=== PATIENT | female | born 1990 | race Caucasian/White ===

== ENCOUNTER → 2016-12-01 | Outpatient (REF) | payer OTHER ==
[~2016-12-01] MED LIST: ACET30TAB PO; ACET50TA PO; APAP325T4 PO; MOTR200T44 PO; MULTTAB20 PO; PRENTAB40 PO
[2016-12-01 16:50] LABS: INR 0.98
[2016-12-01 17:09] LABS: CONTROL LINE HCG INT CTR LINE PRESENT
[2016-12-01 17:13] LABS: MEAN CORPUSCULAR HEMOGLOBIN 32.4 pg (27.0-33.0); RED CELL DISTRIBUTION WIDTH 12.5 % (11.5-14.5); WHITE BLOOD COUNT 7.7 K/mm3 (4.0-10.0)
[2016-12-01 17:36] LABS: FREE T4 6.83 NG/DL (0.76-1.46)
== END ==
LOC: M SFHCLERA 13:31
PROVIDERS: ATTEND Family Medicine
DX: N93.9 Abnormal uterine and vaginal bleeding, unspecified (principal)

== ENCOUNTER → 2016-12-07 | Outpatient (CLI) | payer OTHER ==
--- NOTE | 2016-12-08 08:11 | REP ---
Clinical: Abnormal uterine bleeding . Technique: Transabdominal pelvic ultrasound followed by transvaginal examination for better evaluation of the endometrium and adnexa with color Doppler evaluation of the ovaries. Findings: Bladder is unremarkable and measures 8.0 x 7.2 x 3.4 cm . Normal anteverted uterus measures 10.1 x 4.3 x 6.6 cm . The endometrial complex measures 8.8 mm thickness. No discrete uterine or endometrial abnormalities are appreciated. Incidental subcentimeter Nabothian cysts noted in the lower uterine segment. Bilateral ovaries are normal in appearance and vascularity without evidence for torsion. Right ovary measures 3.2 x 2.3 x 2.5 cm and includes 2.1 cm cyst ; R I = 0.65 . Left ovary measures 4.5 x 2.0 x 3.4 cm and includes 2.8 cm cyst ; R I = 0.71 . No pelvic fluid or adnexal mass lesion. . Impression: 1. Bilateral ovarian cysts/dominant follicle likely physiologic. Signed by Sharad Shore MD 12/08/2016 04:28 A
== END ==
LOC: M LRY 08:33
PROVIDERS: ATTEND Family Medicine
DX: N83.201 Unspecified ovarian cyst, right side (principal); N83.202 Unspecified ovarian cyst, left side

== ENCOUNTER → 2017-03-26 | Outpatient (REF) | payer OTHER ==
[2017-03-26 12:53] LABS: YEAST LIKE CELL URINE AUTO SMALL
== END ==
LOC: M SFHCLERA 09:54
PROVIDERS: ATTEND Family Medicine
DX: E07.9 Disorder of thyroid, unspecified (principal); R80.9 Proteinuria, unspecified; N94.10 Unspecified dyspareunia; Z12.4 Encounter for screening for malignant neoplasm of cervix

== ENCOUNTER 2017-04-05 16:13 | Emergency (ER) | payer OTHER ==
[~2017-04-05] VITALS: Ht 167.6 cm; Wt 102.3 kg
[2017-04-05 18:26] LABS: CONTROL LINE UCG INT CTR LINE PRESENT
[2017-04-05 18:57] VITALS: BP 127/72
--- NOTE | 2017-04-05 18:59 | ED PDOC ---
Post-Departure Follow-Up PT STATES SHE WAS TOLD WHILE SHE WAS 6 YEARS AGO THAT SHE NEEDED A KIDNEY BIOPSY, BUT BECAUSE SHE WAS , THIS WOULD HAVE TO WAIT. PT DID NOT FOLLOW UP AND DID NOT GET A KIDNEY BIOPSY DONE. PT STATES "I JUST NEVER WENT BACK TO THE DOCTOR". ALFREDO PENDLETON PA-C Apr 05, 2017 18:59
[2017-04-05] MEDS ORDERED: NS 1,000 ML IV ONE (19:00)
[2017-04-05] MEDS ORDERED: ONDANSETRON 4MG/2ML VIAL (J2405) IV ONE (19:00)
[2017-04-05] MEDS ORDERED: KETOROLAC 30 MG/ML VIAL (J1885) IV ONE (19:00)
[2017-04-05 19:12] LABS: BASO # 0.1 10^3/uL (0.0-0.2); BASO % 0.6 % (0.0-1.0); EOS # 0.4 10^3/uL (0.0-0.50); IMMATURE GRANULOCYTE % 0.4 % (0-0); LYMPH # 3.1 10^3/uL (1.5-6.5); LYMPH % 24.4 % (24.0-44.0); MEAN CORPUSCULAR HEMOGLOBIN 31.7 pg (27.0-33.0); MEAN CORPUSCULAR HGB CONC 36.1 g/dl (32.0-36.5); MEAN CORPUSCULAR VOLUME 87.6 fl (80.0-96.0); MONO # 0.9 10^3/uL (0.0-0.8); MONO % 6.9 % (0.0-5.0); NEUTROPHILS # 8.1 10^3/uL (1.8-7.7); NEUTROPHILS % 64.7 % (36.0-66.0); PLATELET COUNT, AUTOMATED 382 10^3/uL (150-450); WHITE BLOOD COUNT 12.5 10^3/uL (4.0-10.0)
--- NOTE | 2017-04-05 19:23 | REP ---
Clinical: Right flank pain. Findings: Liver, spleen, pancreas, bilateral adrenal glands and kidneys are normal. Specifically, no perinephric stranding, hydroureteronephrosis, intrarenal or obstructing ureteral calculi are identified. Cholelithiasis noted without CT evidence for acute cholecystitis. The enteric system is without obstruction or acute inflammatory process and a normal terminal ileum and appendix are identified in the right lower quadrant. Pelvis demonstrates collapsed normal bladder and age-appropriate uterus/adnexa. No pelvic fluid or ascites. No free air. No adenopathy. Abdominal aorta is normal. Musculoskeletal structures are intact. Impression: Normal CT of the abdomen and pelvis. Specifically normal kidneys/urinary tract, normal right lower quadrant and appendix, and no free fluid, inflammatory stranding or adenopathy. Signed by Sharad Shore MD 04/05/2017 07:14 P
[2017-04-05 19:28] LABS: ANION GAP 8 MEQ/L (8-16); BLOOD UREA NITROGEN 9 MG/DL (7-18); CALCIUM LEVEL 8.5 MG/DL (8.5-10.1); CARBON DIOXIDE LEVEL 27 MEQ/L (21-32); CHLORIDE LEVEL 102 MEQ/L (98-107); CREATININE FOR GFR 0.63 MG/DL (0.55-1.02); GLOMERULAR FILTRATION RATE > 60.0 (>60); GLUCOSE, FASTING 86 MG/DL (70-105); POTASSIUM SERUM 3.5 MEQ/L (3.5-5.1); SODIUM LEVEL 137 MEQ/L (136-145)
[2017-04-05] MEDS ORDERED: CIPR-249 PO (19:42)
[2017-04-05] MEDS ORDERED: ZOFR4TAB3 PO (19:42)
== END 2017-04-05 19:55 | disposition home or self-care (01) ==
LOC: M ED 16:13
DX: N39.0 Urinary tract infection, site not specified (principal); F41.9 Anxiety disorder, unspecified
CPT/HCPCS: 74176; 80048; 81001; 84703; 85025; 87088; 87186; 96374; 96375; 99283; J1885; J2405

== ENCOUNTER → 2017-04-07 | Outpatient (REF) | payer OTHER ==
[~2017-04-07] MED LIST changes: +CIPR-249 PO; +ZOFR4TAB3 PO
[2017-04-07 19:40] LABS: ALBUMIN 3.2 GM/DL (3.2-5.2); CHOLESTEROL LEVEL 209 MG/DL (<200); COMPLEMENT C3 136 MG/DL (90-180); COMPLEMENT C4 28.2 MG/DL (10-40); TOTAL PROTEIN 6.7 GM/DL (6.4-8.2); TRIGLYCERIDES LEVEL 104 MG/DL (<150)
[2017-04-07 19:47] LABS: FREE T4 6.33 NG/DL (0.76-1.46)
[2017-04-07 21:29] LABS: MICROSCOPIC INDICATED? MAN YES (NO)
[2017-04-07 21:30] LABS: BACTERIA, URINE SMALL AMOUNT; CALCIUM OXALATE CRYSTALS,URINE SMALL AMOUNT /hpf; HYALINE CAST, URINE NONE SEEN /lpf (0-1); MICROSCOPIC EXAM PERFORMED; SQUAMOUS EPITHELIAL CELL URINE SMALL AMOUNT /hpf (SMALL AMT); WBC, URINE 0-1 /hpf (0-3)
[2017-04-09 14:06] LABS: ALBUMIN 3.69 GM/DL (3.29-5.55)
[2017-04-12 00:07] LABS: FREE KAPPA LIGHT CHAINS SERUM 19.5 mg/L (3.3-19.4); FREE LAMBDA LIGHT CHAINS SERUM 22.3 mg/L (5.7-26.3); KAPPA/LAMBDA RATIO SERUM 0.87 (0.26-1.65)
== END ==
LOC: M SFHCLERA 09:19
PROVIDERS: ATTEND Family Medicine
DX: N05.9 Unspecified nephritic syndrome with unspecified morphologic changes (principal)

== ENCOUNTER → 2017-04-20 | Outpatient (CLI) | payer OTHER | LOC: M LAB 09:28 | PROVIDERS: ATTEND Internal Medicine Endocrinology, Diabetes & Metabolism | DX: R94.6 Abnormal results of thyroid function studies (principal) ==

== ENCOUNTER → 2017-04-20 | Outpatient (CLI) | payer OTHER ==
[~2017-04-20] MED LIST changes: +PROHANCE 279.3MG/ML 15ML VIAL (A9576) As Ordered ONE
--- NOTE | 2017-04-20 15:33 | REP ---
MRI brain and pituitary without and with IV gadolinium: History: Elevated serum free T4 level. Gadolinium enhancement dose: 10 mL of intravenous ProHance. MR technique: Axial, sagittal and coronal imaging planes utilized. T1 and T2-weighted sequences include spin-echo, fast spin echo, FLAIR, and diffusion weighted sequences. Sequential dynamic postcontrast enhanced thin sections through the pituitary are acquired in the coronal plane and postcontrast sagittal sections are acquired. Postcontrast whole brain T1-weighted axial sequences acquired. No comparison brain imaging. MRI findings: The bony calvarium is intact. Craniocervical junction and upper cervical cord are normal in appearance. Lateral, third, and fourth ventricles are normal in size and position. Valdovinos-white differentiation pattern is intact. No abnormal white matter lesion is seen. No vascular abnormality is noted. No evidence of intraorbital abnormality. There is evidence of proteinaceous fluid in a portion of the right frontal sinus consistent with right frontal sinus inflammatory disease. The other visualized paranasal sinuses are clear. Pituitary gland is normal in height, 5 mm. The pituitary stalk enhances normally and is in the midline. No evidence of microadenoma or macroadenoma is seen. The suprasellar cistern and optic chiasm are unremarkable. No abnormal gadolinium enhancement is seen intracranially. Impression: Proteinaceous fluid signal in a portion of the right frontal sinus consistent with inflammatory sinus changes. Otherwise negative MRI study of the brain and pituitary without and with intravenous gadolinium. Signed by Jeff Mi MD 04/20/2017 04:16 P
== END ==
LOC: M RAD 09:55
PROVIDERS: ATTEND Family Medicine
DX: R94.6 Abnormal results of thyroid function studies (principal)

== ENCOUNTER → 2017-04-24 | Outpatient (REF) | payer OTHER ==
[~2017-04-24] MED LIST changes: -PROHANCE 279.3MG/ML 15ML VIAL (A9576) As Ordered ONE
[2017-04-24 14:19] LABS: COMPLEMENT C4 28.8 MG/DL (10-40)
== END ==
LOC: M LAB REF 13:26
PROVIDERS: ATTEND Internal Medicine Nephrology
DX: R80.9 Proteinuria, unspecified (principal); R31.9 Hematuria, unspecified

== ENCOUNTER → 2017-05-05 | Outpatient (CLI) | payer OTHER ==
[2017-05-05 13:11] LABS: INR 1.01
[2017-05-12 08:09] LABS: APTT 26.8 sec (.); Anticardiolipin Ab, IgA <10 APL (.); DRVTT Confirm Seconds 39.4 sec (.); DRVTT Ratio 1.2 ratio (.); DRVTT Screen Seconds 53.1 sec (.)
== END ==
LOC: M LAB 12:04
DX: R80.9 Proteinuria, unspecified (principal); R31.9 Hematuria, unspecified
CPT/HCPCS: 86147

== ENCOUNTER → 2017-07-04 | Outpatient (REF) | payer OTHER ==
[2017-07-04 15:13] LABS: TOTAL VOLUME, URINE 1310 ML
[2017-07-04 15:21] LABS: TOTAL PROTEIN 24 HOUR URINE 2473.2 MG/24HR (50-150); URINE TOTAL PROTEIN 188.8 MG/DL (0-12)
== END ==
LOC: M LAB REF 13:45
DX: R80.9 Proteinuria, unspecified (principal)
CPT/HCPCS: 81050

== ENCOUNTER → 2017-08-16 | Outpatient (REF) | payer OTHER ==
[2017-08-16 14:04] LABS: CHOLESTEROL LEVEL 196 MG/DL (<200); HDL CHOLESTEROL 49 MG/DL (>40); LDL CHOLESTEROL 118.6 MG/DL (<100); NON-HDL-C 147 MG/DL; TRIGLYCERIDES LEVEL 142 MG/DL (<150)
[2017-08-16 14:17] LABS: TOTAL PROTEIN,RANDOM URINE 134.1 MG/DL (0.0-12.0)
== END ==
LOC: M LAB REF 13:24
DX: R80.9 Proteinuria, unspecified (principal); N03.9 Chronic nephritic syndrome with unspecified morphologic changes

== ENCOUNTER → 2017-11-13 | Outpatient (REF) | payer OTHER ==
[2017-11-13 18:04] LABS: TOTAL PROTEIN,RANDOM URINE 250.3 MG/DL (0.0-12.0)
== END ==
LOC: M LAB REF 16:55
DX: R80.9 Proteinuria, unspecified (principal)
CPT/HCPCS: 84156

== ENCOUNTER → 2018-01-15 | Outpatient (REF) | payer OTHER ==
[2018-01-15 14:41] LABS: TOTAL PROTEIN,RANDOM URINE 50.7 MG/DL (0.0-12.0)
[2018-01-15 19:58] LABS: CREATININE,RANDOM URINE 26.6 MG/DL
== END ==
LOC: M LAB REF 13:17
DX: N03.9 Chronic nephritic syndrome with unspecified morphologic changes (principal)
CPT/HCPCS: 82570

== ENCOUNTER 2018-05-24 07:54 | Day surgery (SDC) | payer OTHER ==
[~2018-05-24] VITALS: Ht 165.1 cm; Wt 87.3 kg
[~2018-05-24 07:54] MED LIST changes: -ACET50TA PO; +FISH7.5C PO; +LIDOCAINE 2% INJ 100 MG/5 ML SDV (FOR ANES.) As Ordered ONE; +LOSA25TA14 PO; +MAPA500T2 PO; +MULT1TAB10 PO; +NS 1,000 ML IV SCH; +PROPOFOL 200 MG/20 ML VIAL As Ordered ONE; +ZOFR4TAB14 PO; -ZOFR4TAB3 PO
--- NOTE | 2018-05-24 10:00 | ROOR ---
Patient Name: Kelli Evangelista Procedure Date: 05/24/2018 9:30 AM Date of : 1990 Age: 27 Room: [facility] Gender: Female Note Status: Finalized Procedure: Colonoscopy Indications: Chronic diarrhea, Clinically significant diarrhea of unexplained origin Providers: Daniel Cpaps MD Referring MD: Briana XAVIER MD Requesting Provider: Medicines: Monitored Anesthesia Care Complications: No immediate complications. Procedure: Pre-Anesthesia Assessment: - Prior to the procedure, a History and Physical was performed, and patient medications and allergies were reviewed. The patient is competent. The risks and benefits of the procedure and the sedation options and risks were discussed with the patient. All questions were answered and informed consent was obtained. Patient identification and proposed procedure were verified by the physician, the nurse and the anesthesiologist in the procedure room. Mental Status Examination: normal. Airway Examination: normal oropharyngeal airway and neck mobility. Respiratory Examination: clear to auscultation. CV Examination: normal. Prophylactic Antibiotics: The patient does not require prophylactic antibiotics. Prior Anticoagulants: The patient has taken no previous anticoagulant or antiplatelet agents. ASA Grade Assessment: II - A patient with mild systemic disease. After reviewing the risks and benefits, the patient was deemed in satisfactory condition to undergo the procedure. The anesthesia plan was to use monitored anesthesia care (MAC). Immediately prior to administration of medications, the patient was re-assessed for adequacy to receive sedatives. The heart rate, respiratory rate, oxygen saturations, blood pressure, adequacy of pulmonary ventilation, and response to care were monitored throughout the procedure. The physical status of the patient was re-assessed after the procedure. The Colonoscope was introduced through the anus and advanced to the terminal ileum, with identification of the appendiceal orifice and IC valve. The colonoscopy was performed without difficulty. The patient tolerated the procedure well. The quality of the bowel preparation was good. The terminal ileum, ileocecal valve, appendiceal orifice, and rectum were photographed. Scope insertion time was 3 minutes. Scope withdrawal time was 7 minutes. The total duration of the procedure was 10 minutes. Findings: The perianal and digital rectal examinations were normal. The terminal ileum appeared normal. Non-bleeding external and internal hemorrhoids were found during retroflexion. The hemorrhoids were medium-sized. Normal mucosa was found in the entire colon. Biopsies for histology were taken with a cold forceps from the right colon, left colon, transverse colon and rectosigmoid colon for evaluation of microscopic colitis. Verification of patient identification for the specimen was done by the physician and nurse using the patient's name, date and medical record number. Estimated blood loss was minimal. Impression: - The examined portion of the ileum was normal. - Non-bleeding external and internal hemorrhoids. - Normal mucosa in the entire examined colon. Biopsied. Recommendation: - Patient has a contact number available for emergencies. The signs and symptoms of potential delayed complications were discussed with the patient. Return to normal activities tomorrow. Written discharge instructions were provided to the patient. - Resume previous diet. - Continue present medications. - Await pathology results. - Repeat colonoscopy at age 49 for screening purposes. - Based on the biopsy results you will receive a phone call from GI clinic in 2-3 weeks to review the pathology results AND/OR your results will be faxed to your Primary care physician. - Return to primary care physician. Daniel Capps MD Daniel Capps MD 05/24/2018 10:00:23 AM This report has been signed electronically. Number of Addenda: 0 Note Initiated On: 05/24/2018 9:30 AM Estimated Blood Loss: Estimated blood loss was minimal.
[2018-05-24 10:13] VITALS: BP 132/82
== END 2018-05-24 10:28 | disposition home or self-care (01) ==
LOC: M OPP 07:54
PROVIDERS: ATTEND Internal Medicine Gastroenterology
DX: K58.0 Irritable bowel syndrome with diarrhea (principal); K64.4 Residual hemorrhoidal skin tags; K64.8 Other hemorrhoids; N18.9 Chronic kidney disease, unspecified; E05.90 Thyrotoxicosis, unspecified without thyrotoxic crisis or storm; K21.9 Gastro-esophageal reflux disease without esophagitis; L40.0 Psoriasis vulgaris; F41.9 Anxiety disorder, unspecified; R06.83 Snoring; Z79.899 Other long term (current) drug therapy

== ENCOUNTER → 2018-08-13 | Outpatient (REF) | payer OTHER ==
[~2018-08-13] MED LIST changes: +ACET-716 PO; -ACET30TAB PO; -LIDOCAINE 2% INJ 100 MG/5 ML SDV (FOR ANES.) As Ordered ONE; -NS 1,000 ML IV SCH; -PROPOFOL 200 MG/20 ML VIAL As Ordered ONE
[2018-08-13 18:34] LABS: CHOLESTEROL RISK RATIO 3.41 (<5)
[2018-08-13 18:48] LABS: TOTAL PROTEIN,RANDOM URINE 210.2 MG/DL (0.0-12.0)
== END ==
LOC: M LAB REF 17:32
PROVIDERS: ATTEND Internal Medicine Nephrology
DX: N03.9 Chronic nephritic syndrome with unspecified morphologic changes (principal); R80.9 Proteinuria, unspecified